=== PATIENT | male | born 1940 | race Caucasian/White ===

== ENCOUNTER 2017-09-13 19:32 | Emergency (ER) | payer OTHER ==
[~2017-09-13 19:32] MED LIST: ALLO300T PO; ASPI-515 PO; CO Q-10 PO; LISI-170 PO; OXYC-306 PO
[2017-09-13 19:44] VITALS: BP 136/81
[2017-09-13] MEDS ORDERED: OXYMETAZOLINE NASAL SPRAY 0.05%, 15ML ONE (20:36)
[2017-09-13] MEDS ORDERED: OXYMETAZOLINE NASAL SPRAY 0.05%, 15ML NAS ONE (21:00)
[2017-09-13] MEDS ORDERED: PLEASE ENTER HEIGHT AND WEIGHT MC SCH (21:00)
== END 2017-09-13 21:09 | disposition home or self-care (01) ==
LOC: ED 21:03
DX: R04.0 Epistaxis (principal); I10 Essential (primary) hypertension
CPT/HCPCS: 99283

== ENCOUNTER → 2020-09-18 | Outpatient (CLI) | payer MEDICARE ==
[~2020-09-18] MED LIST changes: -ASPI-515 PO; +ASPI-963 PO; -OXYC-306 PO; +OXYC1TAB17 PO
[2020-09-18 11:34] LABS: ALANINE AMINOTRANSFERASE 16 U/L (12-78); ALBUMIN 3.1 g/dL (3.4-5.0); ANION GAP 5 mmol/L (5-15); CALCIUM 8.5 mg/dL (8.5-10.1); CHLORIDE 105 mmol/L (98-107); CHOLESTEROL, TOTAL 120 mg/dL (140-239); CREATININE 0.81 mg/dL (0.7-1.3)
[2020-09-18 11:41] LABS: MEAN CORPUSCULAR HEMOGLOBIN 32.5 pg (27.5-34.5); MEAN CORPUSCULAR HGB CONC 34.2 g/dL (33.2-36.2); MEAN PLATELET VOLUME 7.6 fL (7.4-10.4); PLATELET COUNT 279 x10^3/uL (130-400); RED CELL DISTRIBUTION WIDTH 14.8 % (9.4-14.8)
[2020-09-18 11:45] LABS: ALKALINE PHOSPHATASE 91 U/L (45-117); BILIRUBIN,TOTAL 0.6 mg/dL (0.2-1.0); CHOL/HDL RATIO 2.6; HDL CHOL % 38 % (26-37); HDL CHOLESTEROL (DIRECT) 46 mg/dL (40-60); LDL CHOLESTEROL,CALCULATED 61 mg/dL (54-169); LDL/HDL RATIO 1.3 (0.5-3.0); TOTAL PROTEIN 7.4 g/dL (6.4-8.2); TRIGLYCERIDES 63 mg/dL (50-200); VLDL CHOLESTEROL 13 mg/dL (0-25)
== END | disposition home or self-care (01) ==
LOC: LAB 10:58
PROVIDERS: ATTEND Family Medicine
DX: Z12.9 Encounter for screening for malignant neoplasm, site unspecified (principal); D51.9 Vitamin B12 deficiency anemia, unspecified; E78.2 Mixed hyperlipidemia; K43.9 Ventral hernia without obstruction or gangrene; M10.9 Gout, unspecified; N18.2 Chronic kidney disease, stage 2 (mild); R73.01 Impaired fasting glucose; Z85.46 Personal history of malignant neoplasm of prostate
CPT/HCPCS: 36415; 80053; 80061; 82043; 82570; 83036; 84153; 84443; 84550; 85027; G0103

== ENCOUNTER 2020-10-14 11:55 | Emergency (ER) | payer MEDICARE ==
[~2020-10-14] VITALS: Ht 182.9 cm; Wt 65.2 kg
--- NOTE | 2020-10-14 13:03 | NUR ---
PT AMBULATORY TO ROOM, PT CHANGED INTO GOWN. MONITORS IN PLACE. NO NEEDS AT THIS TIME. CALL LIGHT WITHIN REACH
[2020-10-14] MEDS ORDERED: SODIUM CHLORIDE FLUSH 10ML SYR IVF ONE (13:30)
--- NOTE | 2020-10-14 13:40 | NUR ---
PT GAVE PERMISSION TO LET DAUGHTER, MEEK GRAY, KNOW ABOUT POC. [phone]
[2020-10-14 13:51] LABS: BASOPHILS % (AUTO) 1 % (0-1); EOSINOPHILS % (AUTO) 1 % (1-7); LYMPHOCYTES % (AUTO) 9 % (22-44); MEAN CORPUSCULAR HEMOGLOBIN 32.9 pg (27.5-34.5); MEAN PLATELET VOLUME 7.6 fL (7.4-10.4); MONOCYTES % (AUTO) 11 % (2-9); NEUTROPHILS % (AUTO) 78 % (42-75); PLATELET COUNT 250 x10^3/uL (130-400); RED BLOOD COUNT 3.76 x10^6/uL (4.38-5.82); RED CELL DISTRIBUTION WIDTH 15.2 % (9.4-14.8)
[2020-10-14 13:52] LABS: ALANINE AMINOTRANSFERASE 15 U/L (12-78); ALBUMIN 3.2 g/dL (3.4-5.0); ANION GAP 5 mmol/L (5-15); CALCIUM 8.6 mg/dL (8.5-10.1); CHLORIDE 105 mmol/L (98-107); MD NO
[2020-10-14 13:55] LABS: ALKALINE PHOSPHATASE 75 U/L (45-117); BILIRUBIN,TOTAL 0.4 mg/dL (0.2-1.0); CREATININE 0.77 mg/dL (0.7-1.3)
--- NOTE | 2020-10-14 14:19 | NUR ---
PT SITTING ON GURNEY, WATCHING TV. NAD/VSS. NO NEEDS AT THIS TIME. CALL LIGHT WITHIN REACH
--- NOTE | 2020-10-14 15:20 | NUR ---
PT TO CT
[2020-10-14] MEDS ORDERED: OMNIPAQUE 350 MG/ML, 100ML BOTTLE ONE (15:41)
[2020-10-14 18:03] VITALS: BP 111/68
--- NOTE | 2020-10-14 18:04 | NUR ---
Patient given discharge instructions and they have confirmed that they understand the instructions. Patient ambulatory with steady gait.
[2020-11-01] MEDS ORDERED: ASPI-1026 PO (11:41)
[2020-11-01] MEDS ORDERED: MULT-658 PO (11:41)
== END 2020-10-14 18:08 | disposition home or self-care (01) ==
LOC: ED 14:16
DX: L24.9 Irritant contact dermatitis, unspecified cause (principal); K63.2 Fistula of intestine; R94.31 Abnormal electrocardiogram [ECG] [EKG]; I10 Essential (primary) hypertension
CPT/HCPCS: 36415; 74177; 80053; 83605; 85025; 87040; 93005; 99285; Q9967

== ENCOUNTER 2020-10-21 10:10 | Emergency (ER) | payer MEDICARE ==
[~2020-10-21] VITALS: Ht 182.9 cm; Wt 67.4 kg
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
[2020-10-21 11:07] LABS: BASOPHILS % (AUTO) 1 % (0-1); EOSINOPHILS % (AUTO) 1 % (1-7); LYMPHOCYTES % (AUTO) 8 % (22-44); MEAN CORPUSCULAR HEMOGLOBIN 33.1 pg (27.5-34.5); MEAN CORPUSCULAR HGB CONC 33.5 g/dL (33.2-36.2); MEAN PLATELET VOLUME 7.2 fL (7.4-10.4); MONOCYTES % (AUTO) 11 % (2-9); NEUTROPHILS % (AUTO) 79 % (42-75); PLATELET COUNT 270 x10^3/uL (130-400); RED CELL DISTRIBUTION WIDTH 15.1 % (9.4-14.8)
[2020-10-21 11:10] LABS: MD NO
[2020-10-21 11:14] LABS: ALANINE AMINOTRANSFERASE 15 U/L (12-78); ANION GAP 5 mmol/L (5-15); CALCIUM 9.2 mg/dL (8.5-10.1); CHLORIDE 104 mmol/L (98-107); CREATININE 0.78 mg/dL (0.7-1.3)
[2020-10-21 11:16] LABS: ALKALINE PHOSPHATASE 75 U/L (45-117); BILIRUBIN,TOTAL 0.3 mg/dL (0.2-1.0); TOTAL PROTEIN 6.6 g/dL (6.4-8.2)
--- NOTE | 2020-10-21 11:38 | NUR ---
PT GIVEN URINAL FOR USE AT BEDSIDE. CALL MADE TO [facility] FOR OSTOMY KIT.
--- NOTE | 2020-10-21 12:36 | NUR ---
ANOTHER CALL TO [facility] FOR OSTOMY KIT.
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
[2020-10-21 12:54] VITALS: BP 99/74
== END 2020-10-21 13:13 | disposition home or self-care (01) ==
LOC: ED 10:26
DX: R10.33 Periumbilical pain (principal); K63.2 Fistula of intestine; I10 Essential (primary) hypertension
CPT/HCPCS: 36415; 80053; 83605; 85025; 87040; 99283

== ENCOUNTER → 2020-11-01 | Outpatient (CLI) | payer MEDICARE ==
[~2020-11-01] MED LIST changes: +ASPI-1026 PO; +MULT-658 PO
[2020-11-01 11:56] LABS: BASOPHILS % (AUTO) 1 % (0-1); EOSINOPHILS % (AUTO) 2 % (1-7); LYMPHOCYTES % (AUTO) 12 % (22-44); MEAN CORPUSCULAR HGB CONC 33.2 g/dL (33.2-36.2); MEAN PLATELET VOLUME 6.9 fL (7.4-10.4); MONOCYTES % (AUTO) 13 % (2-9); NEUTROPHILS % (AUTO) 72 % (42-75); PLATELET COUNT 287 x10^3/uL (130-400); RED BLOOD COUNT 3.82 x10^6/uL (4.38-5.82); RED CELL DISTRIBUTION WIDTH 15.2 % (9.4-14.8)
[2020-11-01 11:57] LABS: MD NO
[2020-11-01 12:07] LABS: ALBUMIN 3.1 g/dL (3.4-5.0); ANION GAP 7 mmol/L (5-15); CALCIUM 8.5 mg/dL (8.5-10.1); CHLORIDE 103 mmol/L (98-107)
[2020-11-01 12:10] LABS: ALANINE AMINOTRANSFERASE 18 U/L (12-78); ALKALINE PHOSPHATASE 83 U/L (45-117); BILIRUBIN,TOTAL 0.3 mg/dL (0.2-1.0); CREATININE 0.75 mg/dL (0.7-1.3)
== END | disposition home or self-care (01) ==
LOC: STAR 10:38
PROVIDERS: ATTEND Student in an Organized Health Care Education/Training Program
DX: Z01.818 Encounter for other preprocedural examination (principal); R94.31 Abnormal electrocardiogram [ECG] [EKG]; Z20.822 Contact with and (suspected) exposure to COVID-19
CPT/HCPCS: 36415; 80053; 85025; 93005; U0003

== ENCOUNTER 2020-11-18 07:50 | Inpatient (IN) | payer MEDICARE ==
[~2020-11-18] VITALS: Ht 182.9 cm; Wt 75.7 kg
[2020-11-18] MEDS ORDERED: CHLORHEXIDINE 15 ML UDC PO ONE (09:00)
[2020-11-18] MEDS: LACTATED RINGERS 1,000 ML IV SCH (09:21)
[2020-11-18 09:22] VITALS: BP 109/64
[2020-11-18] MEDS ORDERED: PLEASE ENTER HEIGHT AND WEIGHT MC SCH (09:30)
[2020-11-18] MEDS ORDERED: FENTANYL PF 250 MCG/5ML ONE (10:19)
[2020-11-18] MEDS ORDERED: PROPOFOL 10 MG/ML, 20ML ONE (10:47)
[2020-11-18] MEDS ORDERED: CEFOTETAN 1 GM ONE ×2 (10:47)
[2020-11-18] MEDS ORDERED: DEXAMETHASONE 4 MG/ML, 1ML ONE (10:53)
[2020-11-18] MEDS ORDERED: ONDANSETRON 2MG/ML, 2ML ONE (12:43)
[2020-11-18] MEDS ORDERED: ROCURONIUM 10MG/ML,5ML ONE (12:43)
[2020-11-18] MEDS ORDERED: SUCCINYLCHOLINE 20 MG/ML, 10ML ONE (12:43)
[2020-11-18] MEDS ORDERED: GLYCOPYRROLATE 0.2MG/1ML, 5ML ONE (12:53)
[2020-11-18] MEDS ORDERED: NEOSTIGMINE 1 MG/ML, 10ML ONE (12:53)
[2020-11-18] MEDS ORDERED: HYDROmorphone 1 MG/ML, 1ML INJ ONE (13:06)
[2020-11-18] MEDS ORDERED: ACETAMINOPHEN 325 MG TABLET PO PRN ×2 (13:30→17:30)
[2020-11-18] MEDS ORDERED: LABETALOL 5MG/ML, 20ML IV PRN ×2 (13:30→17:30)
[2020-11-18] MEDS ORDERED: ONDANSETRON 2MG/ML, 2ML IVPush PRN ×2 (13:30→17:30)
[2020-11-18] MEDS ORDERED: hydrALAzine 20 MG/ML, 1ML IV PRN ×3 (13:30→17:30)
[2020-11-18] MEDS ORDERED: HYDROmorphone 1 MG/ML, 1ML INJ IVPush PRN ×2 (13:30→17:30)
[2020-11-18] MEDS ORDERED: PROMETHAZINE 25 MG/ML, 1ML IVPush PRN ×2 (13:30→18:00)
[2020-11-18] MEDS ORDERED: OXYcodone 5 MG/5 ML ORAL.SOL UDC PO PRN ×3 (13:30→18:00)
[2020-11-18] MEDS ORDERED: ACETAMINOPHEN 650 MG/20.3 ML UDC ONE (13:38)
[2020-11-18] MEDS ORDERED: KETOROLAC 30 MG/1 ML ONE (13:38)
[2020-11-18] MEDS: FENTANYL PF 100 MCG/2ML IV PRN ×2 (13:55→14:00)
[2020-11-18] MEDS ORDERED: FENTANYL PF 100 MCG/2ML ONE (13:56)
[2020-11-18] MEDS ORDERED: OXYcodone 5 MG/5 ML ORAL.SOL UDC ONE (13:56)
[2020-11-18] MEDS ORDERED: ACETAMINOPHEN 650 MG/20.3 ML UDC PO ONE (14:00)
[2020-11-18] MEDS ORDERED: KETOROLAC 30 MG/1 ML IVPush ONE (14:00)
[2020-11-18] MEDS ORDERED: ACETAMINOPHEN 325 MG TABLET PO ONE (15:30)
[2020-11-18] MEDS ORDERED: ONDANSETRON 2MG/ML, 2ML IV PRN (15:30)
[2020-11-18] MEDS ORDERED: ENALAPRILAT 1.25 MG/ML, 2ML IV PRN (15:30)
[2020-11-18] MEDS ORDERED: HYDROmorphone 2 MG/ML, 1ML IVPush PRN ×2 (15:30→17:00)
[2020-11-18] MEDS: D5%-0.45NACL+KCL 20MEQ 1,000 ML IV SCH (17:03)
[2020-11-18] MEDS ORDERED: FENTANYL PF 100 MCG/2ML IV PRN (17:30)
[2020-11-18] MEDS ORDERED: morphine SULFATE 10 MG/ML, 1ML IVPush PRN (17:30)
[2020-11-18 18:33] VITALS: BP 95/60
[2020-11-18] MEDS: ACETAMINOPHEN 650 MG/20.3 ML UDC PO SCH (20:07)
[2020-11-18] MEDS: KETOROLAC 30 MG/1 ML IV PRN (20:08)
[2020-11-18 23:13] VITALS: BP 94/61
[2020-11-19] MEDS: KETOROLAC 30 MG/1 ML IV PRN ×3 (02:34→14:58)
[2020-11-19] MEDS: ACETAMINOPHEN 650 MG/20.3 ML UDC PO SCH ×2 (02:34→08:20)
[2020-11-19 02:51] VITALS: BP 93/59
[2020-11-19] MEDS: SODIUM CHLORIDE 0.9%, 500ML IV PRN ×2 (05:37→06:50)
[2020-11-19 05:58] LABS: BASOPHILS % (AUTO) 0 % (0-1); EOSINOPHILS % (AUTO) 0 % (1-7); LYMPHOCYTES % (AUTO) 4 % (22-44); MEAN CORPUSCULAR HEMOGLOBIN 33.8 pg (27.5-34.5); MEAN CORPUSCULAR HGB CONC 33.4 g/dL (33.2-36.2); MEAN PLATELET VOLUME 7.3 fL (7.4-10.4); MONOCYTES % (AUTO) 10 % (2-9); NEUTROPHILS % (AUTO) 85 % (42-75); PLATELET COUNT 269 x10^3/uL (130-400); RED BLOOD COUNT 3.51 x10^6/uL (4.38-5.82); RED CELL DISTRIBUTION WIDTH 14.6 % (9.4-14.8)
[2020-11-19 05:59] LABS: MD NO
[2020-11-19 06:12] LABS: ALBUMIN 2.5 g/dL (3.4-5.0); ANION GAP 7 mmol/L (5-15); CALCIUM 8.3 mg/dL (8.5-10.1); CHLORIDE 105 mmol/L (98-107)
[2020-11-19 06:15] LABS: ALANINE AMINOTRANSFERASE 18 U/L (12-78); ALKALINE PHOSPHATASE 62 U/L (45-117); BILIRUBIN,TOTAL 0.8 mg/dL (0.2-1.0); CREATININE 1.21 mg/dL (0.7-1.3); TOTAL PROTEIN 5.9 g/dL (6.4-8.2)
[2020-11-19 07:35] VITALS: BP 97/62
[2020-11-19] MEDS: ENOXAPARIN 40 MG/0.4 ML SQ SCH (10:43)
[2020-11-19 13:35] VITALS: BP 108/70
[2020-11-19] MEDS: ACETAMINOPHEN 325 MG TABLET PO SCH ×2 (14:20→20:25)
[2020-11-19] MEDS: D5%-0.45NACL+KCL 20MEQ 1,000 ML IV SCH (18:35)
[2020-11-19 20:49] VITALS: BP 101/64
[2020-11-20 02:39] VITALS: BP 114/69
[2020-11-20] MEDS: ACETAMINOPHEN 325 MG TABLET PO SCH ×4 (02:56→20:56)
[2020-11-20] MEDS: LACTATED RINGERS 1,000 ML IV SCH (02:57)
[2020-11-20 06:40] VITALS: BP 139/72
[2020-11-20] MEDS ORDERED: ACET325T26 PO (07:45)
[2020-11-20] MEDS ORDERED: OXYC5TAB2 PO (07:45)
[2020-11-20] MEDS ORDERED: DOCU-131 PO (07:45)
[2020-11-20] MEDS: ENOXAPARIN 40 MG/0.4 ML SQ SCH (09:20)
[2020-11-20 14:18] VITALS: BP 127/77
[2020-11-20] MEDS: D5%-0.45NACL+KCL 20MEQ 1,000 ML IV SCH (15:49)
[2020-11-20 18:40] VITALS: BP 111/69
[2020-11-21 01:10] VITALS: BP 111/75
[2020-11-21] MEDS: ACETAMINOPHEN 325 MG TABLET PO SCH ×4 (03:02→22:03)
[2020-11-21 07:30] VITALS: BP 118/75
[2020-11-21] MEDS: ENOXAPARIN 40 MG/0.4 ML SQ SCH (10:49)
[2020-11-21 13:30] VITALS: BP 115/65
[2020-11-21 19:54] VITALS: BP 111/67
[2020-11-21] MEDS: POLYETHYLENE GLYCOL 17 GM PACKET PO SCH (22:03)
[2020-11-21] MEDS: D5%-0.45NACL+KCL 20MEQ 1,000 ML IV SCH (22:17)
[2020-11-22 01:05] VITALS: BP 104/59
[2020-11-22] MEDS: ACETAMINOPHEN 325 MG TABLET PO SCH ×2 (02:43→08:55)
[2020-11-22 07:25] VITALS: BP 114/68
[2020-11-22] MEDS: POLYETHYLENE GLYCOL 17 GM PACKET PO SCH (08:55)
[2020-11-22] MEDS ORDERED: POLYETHYLENE GLYCOL 17 GM PACKET PO SCH (09:00)
[2020-11-22] MEDS: ENOXAPARIN 40 MG/0.4 ML SQ SCH (11:22)
== END 2020-11-22 11:25 | disposition home or self-care (01) | DRG 908 ==
LOC: ORIP 07:50 → 4NE 14:48
PROVIDERS: ADMIT Student in an Organized Health Care Education/Training Program; ATTEND Student in an Organized Health Care Education/Training Program
PROC: 0WPF0JZ Removal of Synthetic Substitute from Abdominal Wall, Open Approach (ICD-10-PCS; 2020-11-18)
PROC: 0DB80ZZ Excision of Small Intestine, Open Approach (ICD-10-PCS; principal; 2020-11-18 10:00)
PROC: 0DBV0ZX Excision of Mesentery, Open Approach, Diagnostic (ICD-10-PCS; 2020-11-19)
DX: T81.83XA Persistent postprocedural fistula, initial encounter (principal); K63.2 Fistula of intestine; Y81.8 Miscellaneous general- and plastic-surgery devices associated with adverse incidents, not elsewhere classified
CPT/HCPCS: 36415; 80053; 85025; 87635; 88305; 88307; G0378; J1100; J1170; J1650; J1885; J2405; J2704; J2710; J3010; C1765; J0330; J3480; J7040; J7120